=== PATIENT | female | born 1930 | race Caucasian/White ===

== ENCOUNTER 2016-08-21 18:50 | Emergency (ER) | payer OTHER, MEDICARE ==
[~2016-08-21] VITALS: Ht 162.6 cm; Wt 60.4 kg
[~2016-08-21 18:50] MED LIST: ALPRAZOLAM0.25 M2 PO; BENADRYL50 MG PO; BENTYL10 MG PO; CALCIUM 600+D1 EACH PO; CITALOPRAM HBR20 MG PO; FLEXERIL5 MG PO; FLONASE16 G1 BOTH NARES; LO-DOSE ASPIRIN81 M1 PO; LOSARTAN POTASS25 MG PO; METOPROLOL TART25 MG PO; MOBIC7.5 MG PO; MULTIVITAMIN1 EAC2 PO; NORCO 5/3251 TABLET PO; PAXIL10 MG PO; PERCOCET 5/31 TABLET PO; PRAVASTATIN SOD10 MG PO; VICODIN 5-3001 EACH PO; WELLBUTRIN SR150 MG PO; WELLBUTRIN XL300 MG PO
[2016-08-21 19:30] LABS: MCH 33.1 PG (29.0-34.0); MCHC 32.8 G/DL (30.0-36.0); MCV 101.1 FL (83-99); MEAN PLAT.VOLUME 10.3 uM^3 (9.5-12.4); NRBC (%) 0.4 /100 WBC (0-0); PLATELET COUNT 206 K/uL (156-360); RBC DIS.WIDTH-CV 13.5 % (11.8-14.6); RBC DIS.WIDTH-SD 50.4 % (39-53); RED BLOOD COUNT 3.56 M/uL (3.80-5.20); WHITE BLOOD COUNT 5.5 K/uL (4.1-10.2)
[2016-08-21 19:40] LABS: CHLORIDE 105 mEq/L (99-109); POTASSIUM 4.2 mEq/L (3.7-5.4); SODIUM 140 mEq/L (136-147)
[2016-08-21 19:42] LABS: GLUCOSE 106 mg/dL (70-99)
[2016-08-21 19:44] LABS: ANION GAP 9 MEQ/L (2-14); TOTAL BILIRUBIN 0.5 mg/dL (0.0-1.0)
[2016-08-21 19:46] LABS: ALKALINE PHOSPHATASE 74 IU/L (3-129); GFR ESTIMATE (CALCULATED) > 59 mL/min/
[2016-08-21 19:47] LABS: UREA NITROGEN (BUN) 13 mg/dL (9-23)
[2016-08-21] MEDS ORDERED: PANTOPRAZOLE SO40 MG PO (20:04)
[2016-08-21] MEDS ORDERED: OXYCODONE HCL5 MG PO (20:04)
[2016-08-21] MEDS ORDERED: TYLENOL EXTRA500 MG PO (20:05)
[2016-08-21] MEDS ORDERED: COLACE100 MG PO (20:05)
[2016-08-21 20:38] LABS: LIPASE 18 U/L (1.0-51.0)
[2016-08-21 21:32] LABS: ADD MIUA? YES; BILIRUBIN NEGATIVE; BLOOD SMALL; COLOR YELLOW ((YELLOW)); GLUCOSE (STRIP) NEGATIVE; KETONES NEGATIVE; LEUKOCYTES SMALL; NITRITE NEGATIVE; PROTEIN (STRIP) NEGATIVE; UROBILINOGEN 0.2 MG/DL (0.2-1.0)
[2016-08-21 21:37] LABS: BACTERIA NONE SEEN /HPF; EPITHELIAL CELLS RARE /HPF; MUCUS TRACE /LPF; UCUL ADDED? NO
[2016-08-21] MEDS ORDERED: LEVAQUIN750 MG PO (22:31)
[2016-08-21 23:22] VITALS: BP 116/73
== END 2016-08-21 23:26 | disposition home or self-care (01) ==
LOC: EME 18:50
DX: N39.0 Urinary tract infection, site not specified (principal); J45.909 Unspecified asthma, uncomplicated; E78.5 Hyperlipidemia, unspecified; Z86.73 Personal history of transient ischemic attack (TIA), and cerebral infarction without residual deficits; Z87.19 Personal history of other diseases of the digestive system; Z96.642 Presence of left artificial hip joint
CPT/HCPCS: 74177; 80053; 81003; 83690; 85027; 99281; 99285; J7030

== ENCOUNTER 2016-09-08 12:21 | Emergency (ER) | payer OTHER, MEDICARE ==
[~2016-09-08] VITALS: Ht 162.6 cm; Wt 60.4 kg
[~2016-09-08 12:21] MED LIST changes: +COLACE100 MG PO; +LEVAQUIN750 MG PO; +OXYCODONE HCL5 MG PO; +PANTOPRAZOLE SO40 MG PO; +TYLENOL EXTRA500 MG PO
[2016-09-08 13:24] LABS: EOSINOPHIL COUNT 0.2 K/uL (0-0.3); HEMATOCRIT 35.1 % (36.0-46.0); IMMATURE GRANULOCYTE (%) 0.5 % (0.0-0.7); LYMPHOCYTE COUNT 1.5 K/uL (1.0-2.8); MCH 33.3 PG (29.0-34.0); MCV 100.9 FL (83-99); MEAN PLAT.VOLUME 10.4 uM^3 (9.5-12.4); MONOCYTE (%) 11.9 % (3-12); MONOCYTE COUNT 0.5 K/uL (0-0.8); NEUTROPHIL (%) 48.1 % (45-76); PLATELET COUNT 171 K/uL (156-360); RBC DIS.WIDTH-SD 51.2 % (39-53); RED BLOOD COUNT 3.48 M/uL (3.80-5.20); WHITE BLOOD COUNT 4.2 K/uL (4.1-10.2)
[2016-09-08 13:36] LABS: CHLORIDE 105 mEq/L (99-109); POTASSIUM 3.9 mEq/L (3.7-5.4); SODIUM 141 mEq/L (136-147)
[2016-09-08 13:38] LABS: GLUCOSE 125 mg/dL (70-99)
[2016-09-08 13:39] LABS: ANION GAP 10 MEQ/L (2-14)
[2016-09-08 13:40] LABS: TOTAL BILIRUBIN 0.6 mg/dL (0.0-1.0)
[2016-09-08 13:41] LABS: ALKALINE PHOSPHATASE 71 IU/L (3-129)
[2016-09-08 13:42] LABS: GFR ESTIMATE (CALCULATED) > 59 mL/min/
[2016-09-08 13:43] LABS: UREA NITROGEN (BUN) 9 mg/dL (9-23)
[2016-09-08 13:46] LABS: TROP-I INTERPRETATION NEGATIVE; TROPONIN-I < 0.01 ng/mL (0.0-0.30)
[2016-09-08 14:49] LABS: ADD MIUA? YES; BILIRUBIN NEGATIVE; BLOOD NEGATIVE; COLOR YELLOW ((YELLOW)); GLUCOSE (STRIP) NEGATIVE; KETONES NEGATIVE; LEUKOCYTES LARGE; NITRITE NEGATIVE; PROTEIN (STRIP) NEGATIVE; SPECIFIC GRAVITY 1.012 (1.000-1.030); UROBILINOGEN 0.2 MG/DL (0.2-1.0)
[2016-09-08 14:59] LABS: BACTERIA NONE SEEN /HPF; EPITHELIAL CELLS RARE /HPF; MUCUS TRACE /LPF; RED BLOOD CELLS 0-5 /HPF (0-5); UCUL ADDED? NO
[2016-09-08] MEDS ORDERED: CEFPODOXIME PR100 MG PO (15:03)
[2016-09-08] MEDS ORDERED: DIFLUCAN100 MG PO (15:32)
[2016-09-08 15:43] VITALS: BP 150/69
== END 2016-09-08 16:00 | disposition home or self-care (01) ==
LOC: EME 12:21
PROVIDERS: Emergency Medicine
DX: G89.29 Other chronic pain (principal); M54.2 Cervicalgia; M48.56XS Collapsed vertebra, not elsewhere classified, lumbar region, sequela of fracture; N39.0 Urinary tract infection, site not specified; Z88.2 Allergy status to sulfonamides; Z88.0 Allergy status to penicillin; J45.909 Unspecified asthma, uncomplicated; Z86.73 Personal history of transient ischemic attack (TIA), and cerebral infarction without residual deficits; E78.5 Hyperlipidemia, unspecified
CPT/HCPCS: 80053; 81003; 83605; 84484; 85025; 87040; 99281; 99285; J7030

== ENCOUNTER 2016-10-02 10:11 | Emergency (ER) | payer OTHER, MEDICARE ==
[~2016-10-02] VITALS: Ht 162.6 cm; Wt 59.8 kg
[~2016-10-02 10:11] MED LIST changes: +CEFPODOXIME PR100 MG PO; +DIFLUCAN100 MG PO
[2016-10-02 10:53] LABS: EOSINOPHIL (%) 2.6 % (0-5); EOSINOPHIL COUNT 0.1 K/uL (0-0.3); HEMATOCRIT 33.3 % (36.0-46.0); IMMATURE GRANULOCYTE (%) 0.5 % (0.0-0.7); INSTRUMENT ABS NEUTROPHIL CT 2.2 K/uL; LYMPHOCYTE COUNT 1.5 K/uL (1.0-2.8); MCH 32.8 PG (29.0-34.0); MCHC 32.7 G/DL (30.0-36.0); MCV 100.3 FL (83-99); MEAN PLAT.VOLUME 10.5 uM^3 (9.5-12.4); MONOCYTE (%) 10.7 % (3-12); MONOCYTE COUNT 0.5 K/uL (0-0.8); NEUTROPHIL (%) 50.1 % (45-76); NEUTROPHIL COUNT 2.2 K/uL (1.8-6.4); NRBC (%) 0.5 /100 WBC (0-0); PLATELET COUNT 180 K/uL (156-360); RBC DIS.WIDTH-CV 13.2 % (11.8-14.6); RBC DIS.WIDTH-SD 48.8 % (39-53); RED BLOOD COUNT 3.32 M/uL (3.80-5.20); WHITE BLOOD COUNT 4.3 K/uL (4.1-10.2)
[2016-10-02 11:06] LABS: CHLORIDE 107 mEq/L (99-109); SODIUM 141 mEq/L (136-147)
[2016-10-02 11:08] LABS: GLUCOSE 90 mg/dL (70-99)
[2016-10-02 11:09] LABS: ANION GAP 11 MEQ/L (2-14)
[2016-10-02 11:12] LABS: GFR ESTIMATE (CALCULATED) > 59 mL/min/
[2016-10-02 11:13] LABS: UREA NITROGEN (BUN) 12 mg/dL (9-23)
[2016-10-02 12:17] LABS: ADD MIUA? YES; BILIRUBIN NEGATIVE; BLOOD NEGATIVE; COLOR YELLOW ((YELLOW)); GLUCOSE (STRIP) NEGATIVE; KETONES NEGATIVE; LEUKOCYTES LARGE; NITRITE NEGATIVE; PROTEIN (STRIP) NEGATIVE; SPECIFIC GRAVITY 1.034 (1.000-1.030); UROBILINOGEN 0.2 MG/DL (0.2-1.0)
[2016-10-02 12:33] LABS: BACTERIA RARE /HPF; EPITHELIAL CELLS 1+ /HPF; MUCUS TRACE /LPF; RED BLOOD CELLS 0-5 /HPF (0-5); WHITE BLOOD CELLS 0-5 /HPF (0-5)
[2016-10-02] MEDS ORDERED: PERCOCET 5/31 TABLET PO (13:11)
[2016-10-02 13:46] VITALS: BP 103/75
== END 2016-10-02 14:02 | disposition home or self-care (01) ==
LOC: EME 10:11
PROVIDERS: Emergency Medicine
DX: M54.5 Low back pain (principal); M19.90 Unspecified osteoarthritis, unspecified site; I71.4 Abdominal aortic aneurysm, without rupture; Z88.2 Allergy status to sulfonamides; Z88.0 Allergy status to penicillin; J45.909 Unspecified asthma, uncomplicated; Z86.73 Personal history of transient ischemic attack (TIA), and cerebral infarction without residual deficits; E78.5 Hyperlipidemia, unspecified
CPT/HCPCS: 74177; 80048; 81003; 85025; 99281; 99285; J1885; J2270

== ENCOUNTER 2016-11-25 15:59 | Emergency (ER) | payer OTHER, MEDICARE ==
[~2016-11-25] VITALS: Ht 162.6 cm; Wt 61.3 kg
[2016-11-25 17:11] LABS: ADD MIUA? NO; BILIRUBIN NEGATIVE; BLOOD NEGATIVE; COLOR YELLOW ((YELLOW)); GLUCOSE (STRIP) NEGATIVE; KETONES 5; LEUKOCYTES NEGATIVE; NITRITE NEGATIVE; PROTEIN (STRIP) NEGATIVE; SPECIFIC GRAVITY 1.009 (1.000-1.030); UCUL ADDED? NO; UROBILINOGEN 0.2 MG/DL (0.2-1.0)
[2016-11-25 17:12] LABS: MCH 32.4 PG (29.0-34.0); MCHC 32.6 G/DL (30.0-36.0); MCV 99.2 FL (83-99); MEAN PLAT.VOLUME 10.8 uM^3 (9.5-12.4); PLATELET COUNT 223 K/uL (156-360); RBC DIS.WIDTH-SD 47.2 % (39-53); RED BLOOD COUNT 3.83 M/uL (3.80-5.20); WHITE BLOOD COUNT 6.6 K/uL (4.1-10.2)
[2016-11-25 17:19] LABS: CHLORIDE 103 mEq/L (99-109); POTASSIUM 3.9 mEq/L (3.7-5.4); SODIUM 139 mEq/L (136-147)
[2016-11-25 17:21] LABS: GLUCOSE 108 mg/dL (70-99)
[2016-11-25 17:22] LABS: ANION GAP 13 MEQ/L (2-14)
[2016-11-25 17:25] LABS: GFR ESTIMATE (CALCULATED) > 59 mL/min/
[2016-11-25 17:26] LABS: UREA NITROGEN (BUN) 10 mg/dL (9-23)
[2016-11-25 22:00] VITALS: BP 166/78
== END 2016-11-26 03:41 | disposition home or self-care (01) ==
LOC: EME 15:59
DX: R10.9 Unspecified abdominal pain (principal); I71.4 Abdominal aortic aneurysm, without rupture; J45.909 Unspecified asthma, uncomplicated; E78.5 Hyperlipidemia, unspecified; Z86.73 Personal history of transient ischemic attack (TIA), and cerebral infarction without residual deficits; K57.30 Diverticulosis of large intestine without perforation or abscess without bleeding
CPT/HCPCS: 74174; 80048; 81003; 85027; 93005; 99281; 99285; J3010; J7030

== ENCOUNTER 2017-01-07 06:55 | Observation (INO) | payer OTHER, MEDICARE ==
[~2017-01-07] VITALS: Ht 162.6 cm; Wt 62.1 kg
[2017-01-07] MEDS ORDERED: GABAPENTIN100 MG PO (07:20)
[2017-01-07 08:00] LABS: EOSINOPHIL (%) 2.1 % (0-5); EOSINOPHIL COUNT 0.1 K/uL (0-0.3); HEMATOCRIT 34.3 % (36.0-46.0); IMMATURE GRANULOCYTE (%) 0.4 % (0.0-0.7); INSTRUMENT ABS NEUTROPHIL CT 2.6 K/uL; LYMPHOCYTE COUNT 1.4 K/uL (1.0-2.8); MCH 32.4 PG (29.0-34.0); MCHC 32.7 G/DL (30.0-36.0); MCV 99.1 FL (83-99); MEAN PLAT.VOLUME 10.9 uM^3 (9.5-12.4); MONOCYTE (%) 14.3 % (3-12); MONOCYTE COUNT 0.7 K/uL (0-0.8); NEUTROPHIL (%) 54.5 % (45-76); NEUTROPHIL COUNT 2.6 K/uL (1.8-6.4); PLATELET COUNT 175 K/uL (156-360); RBC DIS.WIDTH-CV 13.2 % (11.8-14.6); RBC DIS.WIDTH-SD 47.9 % (39-53); RED BLOOD COUNT 3.46 M/uL (3.80-5.20); WHITE BLOOD COUNT 4.8 K/uL (4.1-10.2)
[2017-01-07 08:11] LABS: PROTHROMBIN TIME 11.2 SEC (10.2-12.9)
[2017-01-07 08:13] LABS: PTT 31.4 SEC (25-37)
[2017-01-07 08:22] LABS: ANION GAP 10 MEQ/L (2-14); CHLORIDE 107 MEQ/L (99-109); MAGNESIUM 2.1 mg/dl (1.3-2.7); POTASSIUM 3.4 MEQ/L (3.7-5.4); SAMPLE HEMOLYSIS CHECK 0; SAMPLE ICTERIC CHECK 0; SAMPLE LIPEMIA CHECK 0; SODIUM 141 MEQ/L (136-147)
[2017-01-07 08:28] LABS: GFR ESTIMATE (CALCULATED) > 59 mL/min/; GLUCOSE 110 mg/dL (70-99); UREA NITROGEN (BUN) 13 mg/dL (9-23)
[2017-01-07 08:31] LABS: TROP-I INTERPRETATION NEGATIVE; TROPONIN-I < 0.01 ng/mL (0.0-0.30)
[2017-01-07] MEDS ORDERED: LIDODERM 5% P1 PATCH TD (09:56)
[2017-01-07 11:28] VITALS: BP 128/71
[2017-01-07 14:03] LABS: TROP-I INTERPRETATION NEGATIVE; TROPONIN-I < 0.01 ng/mL (0.0-0.30)
[2017-01-07 15:57] VITALS: BP 145/65
[2017-01-07 19:28] VITALS: BP 133/71
[2017-01-07 19:46] LABS: TROP-I INTERPRETATION NEGATIVE; TROPONIN-I < 0.01 ng/mL (0.0-0.30)
[2017-01-08 01:00] VITALS: BP 141/99
[2017-01-08 02:15] VITALS: BP 152/67
[2017-01-08 04:30] VITALS: BP 132/70
[2017-01-08 05:30] LABS: HEMATOCRIT 34.3 % (36.0-46.0); MCH 32.8 PG (29.0-34.0); MCHC 32.9 G/DL (30.0-36.0); MCV 99.4 FL (83-99); MEAN PLAT.VOLUME 10.4 uM^3 (9.5-12.4); NRBC (%) 0.4 /100 WBC (0-0); PLATELET COUNT 177 K/uL (156-360); RBC DIS.WIDTH-CV 13.4 % (11.8-14.6); RBC DIS.WIDTH-SD 49.3 % (39-53); RED BLOOD COUNT 3.45 M/uL (3.80-5.20); WHITE BLOOD COUNT 4.7 K/uL (4.1-10.2)
[2017-01-08 05:56] LABS: ANION GAP 10 MEQ/L (2-14); CHLORIDE 107 MEQ/L (99-109); GFR ESTIMATE (CALCULATED) > 59 mL/min/; GLUCOSE 113 mg/dL (70-99); POTASSIUM 3.9 MEQ/L (3.7-5.4); SAMPLE HEMOLYSIS CHECK 0; SAMPLE ICTERIC CHECK 0; SAMPLE LIPEMIA CHECK 0; SODIUM 141 MEQ/L (136-147); UREA NITROGEN (BUN) 10 mg/dL (9-23)
[2017-01-08 07:20] VITALS: BP 122/68
[2017-01-08 12:09] VITALS: BP 136/67
== END 2017-01-08 15:31 | disposition home or self-care (01) ==
LOC: EME 06:55 → EDOF 09:49 → 5WEST 09:49 → EDOF 09:49 → ENRESERV 09:50 → 5WEST 11:13
PROVIDERS: Emergency Medicine; Internal Medicine
DX: R06.02 Shortness of breath (principal); K59.00 Constipation, unspecified; I71.2 Thoracic aortic aneurysm, without rupture; I45.89 Other specified conduction disorders; Z95.2 Presence of prosthetic heart valve; Z95.828 Presence of other vascular implants and grafts; R07.89 Other chest pain; Z87.19 Personal history of other diseases of the digestive system; J45.909 Unspecified asthma, uncomplicated; Z86.73 Personal history of transient ischemic attack (TIA), and cerebral infarction without residual deficits; Z96.642 Presence of left artificial hip joint; I71.4 Abdominal aortic aneurysm, without rupture; R06.4 Hyperventilation; E78.5 Hyperlipidemia, unspecified; Z90.49 Acquired absence of other specified parts of digestive tract; Z79.82 Long term (current) use of aspirin; Z88.0 Allergy status to penicillin; Z88.2 Allergy status to sulfonamides
CPT/HCPCS: 71010; 80048; 83735; 84484; 85025; 85027; 85610; 85730; 93005; 99281; 99285; G0378

== ENCOUNTER 2017-06-01 19:09 | Emergency (ER) | payer OTHER, MEDICARE ==
[~2017-06-01] VITALS: Ht 162.6 cm; Wt 59.0 kg
[~2017-06-01 19:09] MED LIST changes: +GABAPENTIN100 MG PO; +LIDODERM 5% P1 PATCH TD
[2017-06-01 19:13] VITALS: BP 121/66
[2017-06-01 19:48] LABS: HEMATOCRIT 25.7 % (36.0-46.0); HEMOGLOBIN 8.3 G/DL (11.9-15.5); MCH 33.2 PG (29.0-34.0); MCHC 32.3 G/DL (30.0-36.0); MCV 102.8 FL (83-99); PLATELET COUNT 288 K/uL (156-360); RBC DIS.WIDTH-CV 15.3 % (11.8-14.6); RBC DIS.WIDTH-SD 56.3 % (39-53); WHITE BLOOD COUNT 6.2 K/uL (4.1-10.2)
[2017-06-01 19:56] LABS: ALBUMIN 3.7 g/dL (3.2-4.8); CHLORIDE 104 mEq/L (99-109); POTASSIUM 3.9 mEq/L (3.7-5.4); SODIUM 136 mEq/L (136-147)
[2017-06-01 19:59] LABS: GLUCOSE 95 mg/dL (70-99); TOTAL PROTEIN 6.4 g/dL (6.4-8.3)
[2017-06-01 20:01] LABS: TOTAL BILIRUBIN 0.6 mg/dL (0.0-1.0)
[2017-06-01 20:02] LABS: ALKALINE PHOSPHATASE 84 IU/L (3-129); CREATININE 0.7 mg/dL (0.6-1.3); GFR ESTIMATE (CALCULATED) > 59 mL/min/
[2017-06-01 20:03] LABS: UREA NITROGEN (BUN) 9 mg/dL (9-23)
[2017-06-01 20:04] LABS: AST (GOT) 20 IU/L (2-34)
[2017-06-01 20:05] LABS: ALT (GPT) 12 IU/L (3-49)
[2017-06-01 20:06] LABS: LIPASE 27 U/L (1.0-51.0)
[2017-06-01 21:10] LABS: APPEARANCE CLEAR ((CLEAR)); BILIRUBIN NEGATIVE; BLOOD NEGATIVE; COLOR YELLOW ((YELLOW)); GLUCOSE (STRIP) NEGATIVE; KETONES NEGATIVE; LEUKOCYTES NEGATIVE; NITRITE NEGATIVE; PROTEIN (STRIP) NEGATIVE; SPECIFIC GRAVITY 1.017 (1.000-1.030); UCUL ADDED? NO
[2017-06-01] MEDS ORDERED: ZITHROMAX250 MG PO (22:56)
[2017-06-01] MEDS ORDERED: ZOFRAN4 MG PO (22:56)
== END 2017-06-01 23:46 | disposition home or self-care (01) ==
LOC: EME 19:09
DX: J18.9 Pneumonia, unspecified organism (principal); R11.0 Nausea; J45.909 Unspecified asthma, uncomplicated; F32.9 Major depressive disorder, single episode, unspecified; E78.5 Hyperlipidemia, unspecified; D64.9 Anemia, unspecified; F41.9 Anxiety disorder, unspecified; Z86.73 Personal history of transient ischemic attack (TIA), and cerebral infarction without residual deficits; Z96.642 Presence of left artificial hip joint; Z88.5 Allergy status to narcotic agent; Z88.2 Allergy status to sulfonamides; Z88.0 Allergy status to penicillin
CPT/HCPCS: 71045; 80053; 81003; 83605; 83690; 85027; 99281; 99284

== ENCOUNTER 2017-06-03 13:17 | Emergency (ER) | payer OTHER, MEDICARE ==
[~2017-06-03] VITALS: Ht 162.6 cm; Wt 60.3 kg
[~2017-06-03 13:17] MED LIST changes: +ZITHROMAX250 MG PO; +ZOFRAN4 MG PO
[2017-06-03 13:46] LABS: HEMOGLOBIN 8.6 G/DL (11.9-15.5); MCH 33.1 PG (29.0-34.0); MCHC 31.9 G/DL (30.0-36.0); MCV 103.8 FL (83-99); PLATELET COUNT 281 K/uL (156-360); RBC DIS.WIDTH-CV 15.6 % (11.8-14.6); RBC DIS.WIDTH-SD 58.4 % (39-53); WHITE BLOOD COUNT 5.9 K/uL (4.1-10.2)
[2017-06-03 13:54] LABS: ALBUMIN 3.7 g/dL (3.2-4.8); CHLORIDE 105 mEq/L (99-109); POTASSIUM 4.6 mEq/L (3.7-5.4); SODIUM 138 mEq/L (136-147)
[2017-06-03 13:57] LABS: GLUCOSE 97 mg/dL (70-99); TOTAL PROTEIN 6.4 g/dL (6.4-8.3)
[2017-06-03 13:59] LABS: TOTAL BILIRUBIN 0.8 mg/dL (0.0-1.0)
[2017-06-03 14:00] LABS: ALKALINE PHOSPHATASE 89 IU/L (3-129); CREATININE 0.7 mg/dL (0.6-1.3); GFR ESTIMATE (CALCULATED) > 59 mL/min/
[2017-06-03 14:01] LABS: UREA NITROGEN (BUN) 11 mg/dL (9-23)
[2017-06-03 14:02] LABS: AST (GOT) 20 IU/L (2-34)
[2017-06-03 14:03] LABS: ALT (GPT) 13 IU/L (3-49)
[2017-06-03 14:04] LABS: LIPASE 19 U/L (1.0-51.0)
[2017-06-03 17:28] LABS: APPEARANCE CLEAR ((CLEAR)); BILIRUBIN NEGATIVE; BLOOD NEGATIVE; COLOR YELLOW ((YELLOW)); GLUCOSE (STRIP) NEGATIVE; KETONES 20; LEUKOCYTES NEGATIVE; NITRITE NEGATIVE; PROTEIN (STRIP) NEGATIVE; SPECIFIC GRAVITY 1.041 (1.000-1.030); UCUL ADDED? NO
[2017-06-04 00:57] VITALS: BP 107/57
== END 2017-06-04 00:58 | disposition short-term general hospital (02) ==
LOC: EME 13:17
DX: I72.3 Aneurysm of iliac artery (principal); I71.2 Thoracic aortic aneurysm, without rupture; Z86.73 Personal history of transient ischemic attack (TIA), and cerebral infarction without residual deficits; J45.909 Unspecified asthma, uncomplicated; F41.9 Anxiety disorder, unspecified; F32.9 Major depressive disorder, single episode, unspecified; E78.5 Hyperlipidemia, unspecified; Z96.642 Presence of left artificial hip joint; Z88.2 Allergy status to sulfonamides; Z88.0 Allergy status to penicillin; G89.29 Other chronic pain; K59.09 Other constipation; Z79.891 Long term (current) use of opiate analgesic
CPT/HCPCS: 74177; 80053; 81003; 83690; 85027; 93005; J3010; J7040

== ENCOUNTER 2017-11-21 17:33 | Emergency (ER) | payer OTHER, MEDICARE ==
[~2017-11-21] VITALS: Ht 162.6 cm; Wt 60.1 kg
[2017-11-21 18:15] LABS: BASOPHIL (%) 0.5 % (0-1); EOSINOPHIL (%) 3.4 % (0-5); EOSINOPHIL COUNT 0.2 K/uL (0-0.3); HEMATOCRIT 30.7 % (36.0-46.0); HEMOGLOBIN 10.3 G/DL (11.9-15.5); IMMATURE GRANULOCYTE (%) 0.4 % (0.0-0.7); LYMPHOCYTE (%) 35.6 % (15-42); MCH 33.1 PG (29.0-34.0); MCHC 33.6 G/DL (30.0-36.0); MCV 98.7 FL (83-99); MONOCYTE (%) 9.4 % (3-12); MONOCYTE COUNT 0.5 K/uL (0-0.8); NEUTROPHIL (%) 50.7 % (45-76); NEUTROPHIL COUNT 2.9 K/uL (1.8-6.4); NRBC (%) 0.4 /100 WBC (0-0); PLATELET COUNT 198 K/uL (156-360); RBC DIS.WIDTH-CV 13.3 % (11.8-14.6); RED BLOOD COUNT 3.11 M/uL (3.80-5.20); WHITE BLOOD COUNT 5.6 K/uL (4.1-10.2)
[2017-11-21 18:21] LABS: APPEARANCE CLEAR ((CLEAR)); BILIRUBIN NEGATIVE; BLOOD SMALL; COLOR STRAW ((YELLOW)); GLUCOSE (STRIP) NEGATIVE; KETONES NEGATIVE; LEUKOCYTES TRACE; NITRITE NEGATIVE; PROTEIN (STRIP) NEGATIVE; SPECIFIC GRAVITY 1.009 (1.000-1.030); UROBILINOGEN 0.2 MG/DL (0.2-1.0)
[2017-11-21 18:24] LABS: ALBUMIN 3.9 g/dL (3.2-4.8); CHLORIDE 103 mEq/L (99-109); POTASSIUM 4.1 mEq/L (3.7-5.4); SODIUM 139 mEq/L (136-147)
[2017-11-21 18:26] LABS: GLUCOSE 97 mg/dL (70-99); TOTAL PROTEIN 6.7 g/dL (6.4-8.3)
[2017-11-21 18:28] LABS: TOTAL BILIRUBIN 0.4 mg/dL (0.0-1.0)
[2017-11-21 18:30] LABS: ALKALINE PHOSPHATASE 90 IU/L (3-129); CREATININE 0.8 mg/dL (0.6-1.3); GFR ESTIMATE (CALCULATED) > 59 mL/min/
[2017-11-21 18:31] LABS: UREA NITROGEN (BUN) 9 mg/dL (9-23)
[2017-11-21 18:32] LABS: AST (GOT) 12 IU/L (2-34)
[2017-11-21 18:33] LABS: ALT (GPT) 6 IU/L (3-49); LIPASE 29 U/L (1.0-51.0)
[2017-11-21 18:35] LABS: BACTERIA RARE /HPF; EPITHELIAL CELLS RARE /HPF; MUCUS TRACE /LPF; UCUL ADDED? NO; WHITE BLOOD CELLS 0-5 /HPF (0-5)
[2017-11-21] MEDS ORDERED: MIRALAX255 GM PO (20:53)
[2017-11-21 21:11] VITALS: BP 145/87
== END 2017-11-21 21:13 | disposition home or self-care (01) ==
LOC: EME 17:33
PROVIDERS: Emergency Medicine
DX: K59.00 Constipation, unspecified (principal); R11.2 Nausea with vomiting, unspecified; F41.9 Anxiety disorder, unspecified; J45.909 Unspecified asthma, uncomplicated; F32.9 Major depressive disorder, single episode, unspecified; E78.5 Hyperlipidemia, unspecified; Z86.73 Personal history of transient ischemic attack (TIA), and cerebral infarction without residual deficits; Z86.79 Personal history of other diseases of the circulatory system; Z90.49 Acquired absence of other specified parts of digestive tract; Z96.642 Presence of left artificial hip joint; Z88.2 Allergy status to sulfonamides; Z88.0 Allergy status to penicillin
CPT/HCPCS: 74177; 80053; 81003; 83605; 83690; 85025; 93005; 99281; 99285; J2405; J7030